=== PATIENT | female | born 1985 | race Caucasian/White ===

== ENCOUNTER 2018-05-05 20:43 | Emergency (ER) | payer OTHER ==
[~2018-05-05] VITALS: Ht 167.6 cm; Wt 80.6 kg
[~2018-05-05 20:43] MED LIST: FLUO10CA13 PO
--- NOTE | 2018-05-05 20:46 | ED.ADGEN ---
Past History Past Medical History: No Pertinent History Past Surgical History: No Surgical History Smoking: Non-smoker Alcohol Use: Rarely Drug Use: None Adult General Chief Complaint Chief Complaint ".. I was swimming in [facility]... And I think I got a parasite.... I got these spots all over my body.... Yes I have been picking at them but they showed up first... Of use ringworm medicine on an abuse. Warm minutes on U to look warm medicine on and they're not better...." HPI HPI Patient is a 33 year old female who presents with above hx and complaints of skin lesions over her body. She stated they started like insect bites and then have gotten worse over the last few days. Patient does admit to picking at these sites. Patient also missed using multiple different kinds of meds on them. Patient denies any history immunosuppression. Patient denies any travel. Patient denies any specific ill contacts. Patient does not remember her last tetanus. She has gone to multiple other hospitals and clinics to evaluate the skin lesions. Review of Systems Review of Systems Constitutional: Denies fever or chills [] Eyes: Denies change in visual acuity, redness, or eye pain [] HENT: Denies nasal congestion or sore throat [] Respiratory: Denies cough or shortness of breath [] Cardiovascular: No additional information not addressed in HPI [] GI: Denies abdominal pain, nausea, vomiting, bloody stools or diarrhea [] : Denies dysuria or hematuria [] Musculoskeletal: Denies back pain or joint pain [] Integument: Complaints of skin lesions [] Neurologic: Denies headache, focal weakness or sensory changes [] Endocrine: Denies polyuria or polydipsia [] All other systems were reviewed and found to be within normal limits, except as documented in this note. Family History Family History Noncontributory Current Medications Current Medications Current Medications Medications (Trade) Dose Ordered Sig/Tye Start Time Stop Time Status Last Admin Dose Admin Ceftriaxone Sodium (Rocephin Im) 1 gm 1X ONCE 05/05/18 21:30 05/05/18 21:31 DC 05/05/18 21:39 1 GM Diphtheria/ Tetanus/Acell Pertussis (Boostrix) 0.5 ml ONCE ONCE 05/05/18 22:00 05/05/18 22:01 DC 05/05/18 21:30 0.5 ML Tetanus/ Diphtheria Toxoids Adsorbed (Tenivac Vial) 0.5 ml ONCE ONCE 05/05/18 21:15 05/05/18 21:46 DC Allergies Allergies Allergies Coded Allergies Type Severity Reaction Last Updated Verified Sulfa (Sulfonamide Antibiotics) Allergy Intermediate Rash 07/31/13 Yes Physical Exam Physical Exam Constitutional: Mild distress, non-toxic appearance. [] HENT: Normocephalic, atraumatic, bilateral external ears normal, oropharynx moist, no oral exudates, nose normal. []Poor dentition Eyes: PERRLA, EOMI, conjunctiva normal, no discharge. [] Neck: Normal range of motion, no tenderness, supple, no stridor. [] Cardiovascular:Heart rate regular rhythm, no murmur [] Lungs & Thorax: Bilateral breath sounds with apex with scattered wheezing on auscultation [] Abdomen: Bowel sounds normal, soft, no tenderness, no masses, no pulsatile masses. [] Skin: Warm, dry, no erythema, no rash. [] Except as noted in history of present illness. Skin dye- tanning Back: No tenderness, no CVA tenderness. [] Extremities: No tenderness, no cyanosis, no clubbing, ROM intact, no edema. [] Neurologic: Alert and oriented X 3, normal motor function, normal sensory function, no focal deficits noted. [] Psychologic: Affect anxious, judgement normal, mood normal. [] Current Patient Data Lab Results Laboratory Tests Test 05/05/18 20:56 05/05/18 21:30 POC Urine HCG, Qualitative hcg negative (Negative) Urine Collection Type Unknown Urine Color Yellow Urine Clarity Hazy Urine pH 6.5 Urine Specific [place] 1.020 Urine Protein Neg (NEG-TRACE) Urine Glucose (UA) Neg mg/dL (NEG) Urine Ketones (Stick) Neg mg/dL (NEG) Urine Blood Neg (NEG) Urine Nitrite Neg (NEG) Urine Bilirubin Neg (NEG) Urine Urobilinogen Dipstick 0.2 mg/dL (0.2 mg/dL) Urine Leukocyte Esterase Neg (NEG) Urine RBC 0 /HPF (0-2) Urine WBC Occ /HPF (0-4) Urine Squamous Epithelial Cells Mod /LPF Urine Bacteria Few /HPF (0-FEW) Urine Opiates Screen Neg (NEG) Urine Methadone Screen Neg (NEG) Urine Barbiturates Neg (NEG) Urine Phencyclidine Screen Neg (NEG) Urine Amphetamine/Methamphetamine Pos (NEG) Urine Benzodiazepines Screen Neg (NEG) Urine Cocaine Screen Neg (NEG) Urine Cannabinoids Screen Neg (NEG) Urine Ethyl Alcohol Neg (NEG) EKG EKG [] Radiology/Procedures Radiology/Procedures [] Course & Med Decision Making Course & Med Decision Making Pertinent Labs and Imaging studies reviewed. (See chart for details). Patient to stop picking at wounds. Patient massage lesions were Polysporin or bacitracin to wash with soap and water 4 times a day. Patient follow-up primary care. Patient did not place any other ointments or skin dyes on her skin. She will have scarring where she is picked at skin. Avoid illicit drug use. [] Final Impression Final Impression 1. Cellulitis 2. Picking at wounds 3. + Amphetamine Drug screen. Dragon Disclaimer Dragon Disclaimer This electronic medical record was generated, in whole or in part, using a voice recognition dictation system. TRACEY HAZEL MD May 05, 2018 20:46
[2018-05-05] MEDS ORDERED: TETANUS AND DIPHTHERIA TOX/PF 0.5 ML VIAL. VAX IM ONE (21:15)
[2018-05-05] MEDS ORDERED: cefTRIAXone IM 1 GM VIAL IM ONE (21:30)
[2018-05-05 21:59] LABS: BACTERIA,URINE FEW /HPF (0-FEW); BARBITURATES NEG (NEG); BENZODIAZEPINES NEG (NEG); BILIRUBIN,URINE NEG (NEG); CANNABINOIDS NEG (NEG); CLARITY,URINE HAZY; COCAINE NEG (NEG); COLOR,URINE YELLOW; GLUCOSE,URINE NEG (NEG); METHADONE NEG (NEG); NITRITE,URINE NEG (NEG); OPIATES NEG (NEG); PHENCYCLIDINE NEG (NEG); RBC,URINE 0 /HPF (0-2); SQUAMOUS EPITHELIAL CELL,UR MOD /LPF; UROBILINOGEN,URINE 0.2 mg/dL (0.2 mg/dL); WBC,URINE OCC /HPF (0-4)
[2018-05-05 22:00] LABS: AMPHETAMINE/METHAMPHETAMINE POS (NEG)
[2018-05-05] MEDS ORDERED: DIPHTH,PERTUSS(ACELL),TET TOX 0.5 ML DISP.SYRIN. VAX IM ONE (22:00)
[2018-05-05 22:30] VITALS: BP 133/81
== END 2018-05-05 22:35 | disposition home or self-care (01) ==
LOC: ER 20:43
DX: L03.818 Cellulitis of other sites (principal); F42.4 Excoriation (skin-picking) disorder; F15.90 Other stimulant use, unspecified, uncomplicated; Z88.2 Allergy status to sulfonamides
CPT/HCPCS: 36415; 80307; 81001; 81025; 90471; 90715; 96372; 99284; J0696; G0479